=== PATIENT | male | born 1995 | race African-American/Black ===

== ENCOUNTER 2017-06-24 09:00 | Day surgery (SDC) | payer OTHER ==
[~2017-06-24] VITALS: Ht 180.3 cm; Wt 104.6 kg
[2017-06-24 09:21] VITALS: BP 130/91; PULSE 63; TEMP 98.1
[2017-06-24] MEDS ORDERED: AZULFIDINE500 MG/TAB PO (09:25)
[2017-06-24 10:20] VITALS: BP 120/67; PULSE 87; TEMP 98.3
[2017-06-24 10:35] VITALS: BP 121/82; PULSE 86
[2017-06-24 10:50] VITALS: BP 117/77; PULSE 81
== END 2017-06-24 11:10 | disposition home or self-care (01) ==
LOC: SDCO 09:00
DX: K29.30 Chronic superficial gastritis without bleeding (principal); L13.0 Dermatitis herpetiformis; Z68.32 Body mass index [BMI] 32.0-32.9, adult; R03.0 Elevated blood-pressure reading, without diagnosis of hypertension; K29.80 Duodenitis without bleeding
CPT/HCPCS: OP; J2250; J3010; J7030

== ENCOUNTER → 2018-03-05 | Outpatient (CLI) | payer OTHER ==
[~2018-03-05] MED LIST: AZULFIDINE500 MG/TAB PO
== END ==
LOC: COL.RAD 08:57
DX: R59.0 Localized enlarged lymph nodes (principal)

== ENCOUNTER → 2018-03-27 | Outpatient (CLI) | payer OTHER ==
[~2018-03-27] VITALS: Ht 180.3 cm; Wt 94.8 kg
[~2018-03-27] MED LIST changes: +NIZORAL PO; +TOPICORT0.05% TP
[2018-03-27 10:18] VITALS: BP 131/68; PULSE 71
[2018-03-27 11:06] VITALS: BP 140/68; PULSE 57
== END ==
LOC: COL.RAD 09:55
DX: R59.0 Localized enlarged lymph nodes (principal)